=== PATIENT | female | born 1995 | race Caucasian/White ===

== ENCOUNTER 2017-06-28 17:23 | Emergency (ER) | payer OTHER ==
[2017-06-28 17:32] VITALS: BP 103/63
--- NOTE | 2017-06-28 18:00 | UC ---
Abdominal Pain Female HPI - HPI Summary HPI Summary: 21 yo female with right upper quadrent and epigastric pain x 2 days no f/c no back pain no UTI symptoms mild pain is constant has some severe episodes nausea but not vomiting - History of Current Complaint Chief Complaint: UCAbdominalPain Stated Complaint: ABD PAIN Time Seen by Provider: 06/28/17 18:00 Hx Last Menstrual Period: 3 wks ago Onset/Duration: Gradual Onset, Lasting Days Timing: Constant Severity Initially: Mild Severity Currently: Moderate Pain Intensity: 6 Pain Scale Used: 0-10 Numeric Location: Discrete At: RUQ, Epigastric Radiates: No Character: Dull, Sharp - with food Aggravating Factor(s): Nothing Alleviating Factor(s): Nothing Associated Signs and Symptoms: Positive: Nausea Allergies/Adverse Reactions: Allergies Allergy/AdvReac Type Severity Reaction Status Date / Time Amoxicillin Allergy Hives Verified 06/28/17 17:32 Penicillins Allergy Anaphylatic Verified 06/28/17 17:32 Shock Home Medications: Home Medications Azithromyxin LICHA (NF) [Z-Licha (Zithromax) 250 mg tabs #6] 1 cap PO DAILY [History Confirmed 06/28/17] PMH/Surg Hx/FS Hx/Imm Hx Previously Healthy: Yes - Surgical History Surgical History: Yes Surgery Procedure, Year, and Place: Appy age 11 - Family History Known Family History: Positive: Other - gall bladder disease, breast CA, ovarian CA Negative: Cardiac Disease, Hypertension, Diabetes - Social History Alcohol Use: None Substance Use Type: None Smoking Status (MU): Never Smoked Tobacco Review of Systems Constitutional: Negative Skin: Negative Eyes: Negative ENT: Negative Respiratory: Negative Cardiovascular: Negative Gastrointestinal: Abdominal Pain, Nausea Genitourinary: Negative Motor: Negative Neurovascular: Negative Musculoskeletal: Negative Neurological: Negative Psychological: Negative Is Patient Immunocompromised?: No All Other Systems Reviewed And Are Negative: Yes Physical Exam Triage Information Reviewed: Yes Appearance: Well-Appearing, No Pain Distress, Well-Nourished Vital Signs: Initial Vital Signs Temp 97.9 F 06/28/17 17:28 Pulse 69 06/28/17 17:28 Resp 12 06/28/17 17:28 BP 103/63 06/28/17 17:28 Pulse Ox 100 06/28/17 17:28 Vital Signs Reviewed: Yes Eyes: Positive: Conjunctiva Clear ENT: Positive: Hearing grossly normal, TMs normal. Negative: Pharyngeal erythema, Nasal congestion, Nasal drainage, Tonsillar swelling, Tonsillar exudate, Trismus, Muffled/hoarse voice Dental Exam: Normal Neck: Positive: Supple, Nontender, No Lymphadenopathy Respiratory: Positive: Chest non-tender, Lungs clear, Normal breath sounds Cardiovascular: Positive: RRR, No Murmur, Pulses Normal Abdomen Description: Positive: Soft. Negative: Nontender - tender RUQ and epigastrium, Bruit, CVA Tenderness (R), CVA Tenderness (L), Distended, Guarding , Hernia @, Hepatomegaly, McBurney's Point Tenderness, Peritoneal Signs, Pulsatile Mass, Splenomegaly Musculoskeletal: Positive: ROM Intact, No Edema Neurological: Positive: Alert Psychological Exam: Normal Skin Exam: Normal Abd Pain Female Course/Dx - Course Course Of Treatment: uDip- concentrated urine - Differential Dx/Diagnosis Provider Diagnoses: abdominal pain-. suspect biliary colic Discharge - Discharge Plan Condition: Stable Disposition: HOME Patient Education Materials: Biliary Colic (ED) Referrals: Kartik Ricketts MD [Medical Doctor] - As Soon As Possible Additional Instructions: to ER for: worsening symptoms...increased pain/fever/vomiting AVOID FRIED OR FATTY FOODS ALEVE OR ADVIL FOR PAIN you have been referred to a surgeon/call Friday AM to make an appt
[2017-06-28] MEDS ORDERED: Ketorolac INJ* 30 MG/ML 1 ML VIAL IM ONE (18:13)
== END 2017-06-28 18:42 | disposition home or self-care (01) ==
LOC: UCEAST 17:23
DX: R10.11 Right upper quadrant pain (principal); R10.13 Epigastric pain; R11.0 Nausea; Z88.0 Allergy status to penicillin; Z32.02 Encounter for pregnancy test, result negative
CPT/HCPCS: 81003; 84702; 96372; 99201; G0463; J1885